=== PATIENT | male | born 1970 | race Caucasian/White ===

== ENCOUNTER 2021-03-01 01:34 | Emergency (ER) | payer BC, OTHER ==
[~2021-03-01] VITALS: Ht 188 cm; Wt 108.0 kg
--- NOTE | 2021-03-01 01:42 | NUR ---
PT BIB [facility] TO ROOM 21. PT A&OX4, BUT STATES HE DOES NOT REMEMBER FALLING OR HITTING HIS HEAD. PTS HEAD IS BANDAGED BY EMS, AND HAS AN APPROXIMATE 2CM LAC TO POSTERIOR PORTION OF HEAD. PERRLA. PER PT HE HAD A FEW COCKTAILS AFTER WORK, PRIOR TO GETTING HOME AND FALLING. NO ACUTE DISTRESS, PT STATES HE'S JUST NAUSEOUS AT THIS TIME.
[2021-03-01] MEDS ORDERED: ONDANSETRON 2MG/ML, 2ML ONE ×2 (01:57→02:32)
[2021-03-01 02:10] LABS: BASOPHILS % (AUTO) 1 % (0-1); EOSINOPHILS % (AUTO) 1 % (1-7); LYMPHOCYTES % (AUTO) 26 % (22-44); MEAN CORPUSCULAR HEMOGLOBIN 31.8 pg (27.5-34.5); MEAN PLATELET VOLUME 8.1 fL (7.4-10.4); MONOCYTES % (AUTO) 5 % (2-9); NEUTROPHILS % (AUTO) 68 % (42-75); PLATELET COUNT 234 x10^3/uL (130-400); RED BLOOD COUNT 4.57 x10^6/uL (4.38-5.82); RED CELL DISTRIBUTION WIDTH 12.9 % (9.4-14.8)
[2021-03-01] MEDS ORDERED: PROMETHAZINE 25 MG/ML, 1ML ONE (02:14)
--- NOTE | 2021-03-01 02:18 | NUR ---
BREAK RN: CT CALLED BECAUSE PT UNABLE TO LAY DOWN DUE TO EXTREME NAUSEA. MD NOTIFIED AND ORDERS RECIEVED. PT MEDICATED WITH PHENERGAN
[2021-03-01 02:20] LABS: INTERNATIONAL NORMALIZED RATIO 0.99 (0.93-1.1); PROTHROMBIN TIME 10.6 Seconds (9.6-11.5)
[2021-03-01 02:21] LABS: ALBUMIN 3.7 g/dL (3.4-5.0); ANION GAP 9 mmol/L (5-15); CALCIUM 8.2 mg/dL (8.5-10.1); CHLORIDE 107 mmol/L (98-107); CREATININE 0.67 mg/dL (0.7-1.3)
[2021-03-01] MEDS ORDERED: PROMETHAZINE 25 MG/ML, 1ML IM ONE (02:30)
[2021-03-01] MEDS ORDERED: KETAMINE 10 MG/ML, 20ML IV ONE (02:30)
[2021-03-01] MEDS ORDERED: ONDANSETRON 2MG/ML, 2ML IVPush ONE (02:30)
[2021-03-01] MEDS ORDERED: PLEASE ENTER ALLERGIES MC SCH (02:30)
[2021-03-01] MEDS ORDERED: KETAMINE 10 MG/ML, 20ML ONE (02:31)
--- NOTE | 2021-03-01 02:35 | NUR ---
MD TO BEDSIDE TO MEDICATE PT WITH KETAMINE FOR SEDATION TO BE ABLE TO TAKE CT OF HEAD. PT TOLERATED WELL, ON CR MONITOR, AND MD AND RN TO CT TO GET CT DONE. CT DONE WITHOUT INCIDENT, PT REMAINS ON CR MONITOR, BACK TO ROOM, AND MD TO SPEAK WITH PTS MOM. PT REMAINS ASLEEP BUT EASILY AROUSABLE, AIRWAY INTACT, GOOD AERATION AND OXYGENATION.
[2021-03-01] MEDS ORDERED: LIDOCAINE-MPF 1%, 5ML ONE ×2 (03:21→03:49)
--- NOTE | 2021-03-01 03:53 | NUR ---
PT RESTING AND IS EASILY AROUSABLE. PT LAC TO POSTERIOR HEAD IS BEING CLEANED, AND SET UP FOR YURY IS READY FOR PA. PTS MOM AT BEDSIDE. PT REMAINS ON CR MONITOR.
--- NOTE | 2021-03-01 03:58 | NUR ---
PTS LAC IRRIGATED BY EMT AND STAPLE SET UP IS READY.
--- NOTE | 2021-03-01 04:56 | NUR ---
PT RESTING. ALL LAC REPAIR PREPPED IN ROOM. PTS PARENTS AT BEDSIDE.
--- NOTE | 2021-03-01 05:07 | NUR ---
PTS MOM AND HIS RIDES NUMBER: [phone] HOME NUMBER. NUMBER AVAILABLE TO CALL WHEN THE PT NEEDS A RIDE HOME.
--- NOTE | 2021-03-01 05:22 | NUR ---
PT TO BE MTF UNTIL HE'S READY TO GO. PTS ETOH WAS 0.219 ON BLOOD DRAW. PT RESTING, AIRWAY INTACT, GOOD AERATION AND OXYGENATION. PT REMAINS ON CR MONITOR, NO DISTRESS. PT HAS 9 YURY PLACED TO LAC ON POSTERIOR PORTION OF HEAD.
--- NOTE | 2021-03-01 06:51 | NUR ---
REPORT AND CARE TO ROSALIO BROWN.
--- NOTE | 2021-03-01 07:20 | NUR ---
PATIENT AMBULATED TO BATHROOM WITH STEADY GAIT.
--- NOTE | 2021-03-01 07:35 | NUR ---
PATIENT AMBULATED BACK TO [facility], PATIENT STATES HE IS READY TO LEAVE. CALLED PARENTS FOR RIDE.
[2021-03-01 07:49] VITALS: BP 101/50
--- NOTE | 2021-03-01 08:45 | NUR ---
Patient and parents given discharge instructions and prescription they have confirmed that they understand the instructions. Patient ambulatory with steady gait. NAD, all questions answered appropriately, denies additional needs at this time. No personal belongings left in room after discharge.
== END 2021-03-01 08:46 | disposition home or self-care (01) ==
LOC: ED 08:40
DX: S06.0X0A Concussion without loss of consciousness, initial encounter (principal); S01.01XA Laceration without foreign body of scalp, initial encounter; R07.9 Chest pain, unspecified; R06.89 Other abnormalities of breathing; M54.2 Cervicalgia; F10.129 Alcohol abuse with intoxication, unspecified; Y90.9 Presence of alcohol in blood, level not specified; W18.30XA Fall on same level, unspecified, initial encounter; Y93.89 Activity, other specified; Y92.009 Unspecified place in unspecified non-institutional (private) residence as the place of occurrence of the external cause; Y99.8 Other external cause status
CPT/HCPCS: 12004; 36415; 70450; 71045; 72125; 80048; 80320; 82040; 85025; 85610; 93005; 96372; 96374; 99285; J2405; J2550; 99152; G0480